=== PATIENT | female | born 1955 | race Caucasian/White ===

== ENCOUNTER 2017-05-12 10:07 | Emergency (ER) | payer MEDICARE ==
[2017-05-12 10:25] VITALS: TEMP 98.3
[2017-05-12] MEDS ORDERED: MORPHINE SULFATE 4 MG/ML SYRINGE IV STA (10:47)
[2017-05-12] MEDS ORDERED: SODIUM CHLORIDE 0.9% 1,000 ML IV STA (10:47)
[2017-05-12] MEDS ORDERED: ONDANSETRON 4 MG/2 ML VIAL IVP STA (10:47)
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
[2017-05-12 11:26] VITALS: BP 125/64; PULSE 81; RESP 16
[2017-05-12 11:38] LABS: Basophils % (A) 0 %; Eosinophils # (A) 0.1 k/uL (0-0.7); Eosinophils % (A) 1 %; HCT 46.6 % (34.0-46.0); HGB 15.5 gm/dL (11.4-16.0); Lymphocytes # (A) 2.8 k/uL (1.0-4.8); Lymphocytes % (A) 30 %; MCH 30.1 pg (25.0-35.0); MCHC 33.2 g/dL (31.0-37.0); MCV 90.8 fL (80.0-100.0); Mean Platelet Volume 6.7; Monocytes # (A) 0.6 k/uL (0-1.0); Monocytes % (A) 6 %; Neutrophils # (A) 5.5 k/uL (1.3-7.7); Neutrophils % (A) 59 %; Platelet Count 281 k/uL (150-450); RBC 5.14 m/uL (3.80-5.40); RDW 12.5 % (11.5-15.5); WBC 9.3 k/uL (3.8-10.6)
[2017-05-12 11:51] LABS: ALT 52 U/L (9-52); AST 35 U/L (14-36); Albumin 4.3 g/dL (3.5-5.0); Alkaline Phosphatase 56 U/L (38-126); Anion Gap 10 mmol/L; Blood Urea Nitrogen 12 mg/dL (7-17); Calcium 10.6 mg/dL (8.4-10.2); Carbon Dioxide 30 mmol/L (22-30); Chloride 104 mmol/L (98-107); Glucose 88 mg/dL (74-99); Potassium 4.4 mmol/L (3.5-5.1); Sodium 144 mmol/L (137-145); Total Bilirubin 0.4 mg/dL (0.2-1.3); Total Protein 8.4 g/dL (6.3-8.2)
--- NOTE | 2017-05-12 12:10 | CT ---
EXAMINATION TYPE: CT brain ozzyine wo con DATE OF EXAM: 05/12/2017 COMPARISON: NONE HISTORY: Head and neck pain. History of neck and lung cancer per patient. CT DLP: 1616 mGycm, Automated exposure control for dose reduction was used. CONTRAST: None CT of the brain is performed utilizing 3 mm thick sections through the posterior fossa and 3 mm thick sections through the remaining calvarium. Study is performed within 24 hours of arrival to the hospital. No abnormal hyperdensity is present to suggest an acute intracranial hemorrhage. No mass lesion is evident. No acute infarcts are evident. Ventricles and sulci are appropriate for the patient age. Paranasal sinuses and mastoid air cells within the [id number] are clear. IMPRESSIONS: 1. Normal CT brain. CT cervical spine. COMPARISON: None CT of the cervical spine is performed in the axial plane at 2 mm thick sections. Reconstructed image s in the coronal, and sagittal plane are reviewed on the computer. No acute fractures are evident. There is a kyphosis centered at C5. Large anterior vertebral body spurs at C5. There is loss of disc height throughout the cervical spine. This is greatest at C5-6 C6-7. Some poste rior endplate spurring is present at C5-6 in the left paracentral canal mild anterior thecal sac comp ression. Mild foraminal narrowing is present C4-5 due to uncovertebral joint hypertrophy. Some mild f oraminal narrowing at C5-6 may be present greater on the left. Vertebral body heights are preserved. No spinal canal stenosis is evident. IMPRESSIONS: 1. Degenerative changes within the cervical spine greatest at C5-6
[2017-05-12 12:54] LABS: Erythrocyte Sedimentation Rate 11 mm/hr (0-20)
[2017-05-12] MEDS ORDERED: MORPHINE SULFATE 4 MG/ML SYRINGE IVP STA (13:04)
== END 2017-05-12 13:40 | disposition home or self-care (01) ==
LOC: EC 10:07
DX: M54.2 Cervicalgia (principal); R51 Headache; G89.29 Other chronic pain; R40.2412 Glasgow coma scale score 13-15, at arrival to emergency department; F17.200 Nicotine dependence, unspecified, uncomplicated; Z79.899 Other long term (current) drug therapy; Z88.1 Allergy status to other antibiotic agents; Z88.2 Allergy status to sulfonamides; Z88.8 Allergy status to other drugs, medicaments and biological substances; Z85.118 Personal history of other malignant neoplasm of bronchus and lung
CPT/HCPCS: 36415; 80053; 85652; 85025; 72125; 70450; 99284; 96374; 96375; 96376; 96361 ×2; J2270; J2405

== ENCOUNTER 2017-06-03 09:34 | Emergency (ER) | payer MEDICARE ==
[2017-06-03 09:38] VITALS: BP 126/60; PULSE 74; RESP 20; TEMP 97.4
--- NOTE | 2017-06-03 09:51 | ED ---
Headache HPI - General Chief Complaint: Headache Stated Complaint: Neck pain Time Seen by Provider: 06/03/17 09:40 Source: RN notes reviewed, old records reviewed Mode of arrival: ambulatory Limitations: no limitations - History of Present Illness Initial Comments: This patient is a 61-year-old female presents with chief complaint of neck pain and headache. Patient reports that she is here from [place] taking care of her brother with cancer. Patient ports that she's had a history of lung cancer and reports that before she left [place] take care of her brother was told that she's had some spreading of the cancer to her neck. Patient reports that she was prescribed pain medication AND she is in the ER and is hoping to find a primary care physician. Patient states that she took one of the Percocets which helped her pain for approximately an hour but she states that it was continually worsened that she felt she needed to come here. Patient states that she's had no nausea or vomiting vision changes or chest pain or shortness of breath. Patient states that she has had a history of chronic headaches or migraines. Patient reports that she has no fever or chills, sinus congestion or pressure or any other symptoms. - Related Data Home Medications Medication Instructions Recorded Confirmed Multivitamins, Thera [Multivitamin 1 tab PO DAILY 05/12/17 05/12/17 (formulary)] Previous Rx's Medication Instructions Recorded oxyCODONE HCL/ACETAMINOPHEN 1 tab PO Q6HR PRN #15 tab 05/12/17 [Percocet 5-325 mg] Cyclobenzaprine [Flexeril] 10 mg PO TID #15 tab 06/03/17 Ibuprofen [Motrin] 600 mg PO Q8HR PRN #15 tab 06/03/17 Allergies Allergy/AdvReac Type Severity Reaction Status Date / Time marijuana Allergy Anaphylaxis Verified 06/03/17 09:38 neomycin Allergy Rash/Hives Verified 06/03/17 09:38 Sulfa (Sulfonamide AdvReac Unknown Verified 06/03/17 09:38 Antibiotics) Review of Systems ROS Statement: Those systems with pertinent positive or pertinent negative responses have been documented in the HPI. ROS Other: All systems not noted in ROS Statement are negative. Past Medical History Past Medical History: Cancer, COPD Additional Past Medical History / Comment(s): Hepatitis C, recent diagnosis of "neck cancer", lung cancer History of Any Multi-Drug Resistant Organisms: C-DIFF Date of last positivie culture/infection: 02/2017 Past Surgical History: Cholecystectomy, Orthopedic Surgery Additional Past Surgical History / Comment(s): Tendon release in right hand Past Psychological History: ADD/ADHD, Anxiety, Bipolar, Depression, PTSD Smoking Status: Current every day smoker Past Alcohol Use History: Occasional Past Drug Use History: IV Drug Use, Methamphetamine, Opiates, Prescription Drug Abuse General Exam - General Exam Comments Initial Comments: This is a well-appearing alert and oriented 61-year-old female. Doesn't appear to be in any acute distress. Limitations: no limitations General appearance: alert, in no apparent distress Head exam: Present: atraumatic Eye exam: Present: PERRL, EOMI, other (Patient has pinpoint pupils consistent with opiate use.). Absent: normal appearance, scleral icterus, conjunctival injection, periorbital swelling ENT exam: Present: normal exam, mucous membranes moist Neck exam: Present: normal inspection, full ROM, other (Patient reports a minimal tenderness to palpation over the cervical paraspinal muscles. No meningeal signs. Full range of motion noted. No rigidity.). Absent: tenderness, meningismus, lymphadenopathy Respiratory exam: Present: normal lung sounds bilaterally. Absent: respiratory distress, wheezes, rales, rhonchi, stridor Cardiovascular Exam: Present: regular rate, normal rhythm, normal heart sounds. Absent: systolic murmur, diastolic murmur, rubs, gallop, clicks GI/Abdominal exam: Present: soft, normal bowel sounds. Absent: distended, tenderness, guarding, rebound, rigid Extremities exam: Present: normal inspection, full ROM, normal capillary refill. Absent: tenderness, pedal edema, joint swelling, calf tenderness Back exam: Present: normal inspection, full ROM Neurological exam: Present: alert, oriented X3, CN II-XII intact Expanded Patient oriented to: Present: person, place, time Speech: Present: fluid speech Cranial nerves: EOM's Intact: Normal Cerebellar function: Finger to Nose: Normal Upper motor neuron: Pronator Drift: Normal Sensory exam: Upper Extremity Light Touch: Normal, Lower Extremity Light Touch: Normal Motor strength exam: RUE: 5, LUE: 5, RLE: 5, LLE: 5 Eye Response: (4) open spontaneously Motor Response: (6) obeys commands Verbal Response: (5) oriented Ankush Total: 15 Psychiatric exam: Present: normal affect, normal mood Skin exam: Present: warm, dry, intact, normal color. Absent: rash Course Vital Signs 06/03/17 09:37 Temperature 97.4 F L Pulse Rate 74 Respiratory 20 Rate Blood Pressure 126/60 O2 Sat by Pulse 98 Oximetry Medical Decision Making - Medical Decision Making This is a 61-year-old female present emergency Department chief complaining of a headache. She reports having this headache chronically for quite some time. She was seen in emergency department for approximately one month ago for similar complaint status full workup CT head and neck and C-spine. She states that she's had a history of cancer which spread to her neck. And upon review of the previous chart and scans patient's CT of the brain and C-spine are normal. No evidence of metastatic disease. She complains of some minor tenderness over the left cervical paraspinous muscles. Patient was offered IV fluids and IV medication for her headache, she has no neurological deficits or any other symptoms at this time. She also requests a prescription for pain medication. Maps report was ran. She did have one prescription filled for oxycodone acetaminophen from her previous ER visit. No other prescriptions were completed at that time. Patient requested only to see IM injections. She does not want an IV. Given IM Norflex and Toradol for headache. At this time I discussed the patient she is follow-up with primary care provider for further treatment and pain medication. We'll discharge her with a temperature medication and advised to follow-up with PCP. Given referrals for PCPs. All questions were answered and return parameters were discussed. Disposition Clinical Impression: Neck pain on left side, Headache Disposition: HOME SELF-CARE Condition: Good Instructions: Acute Headache (ED) Additional Instructions: Patient advised to take the medication as prescribed. Follow-up with primary care provider. Return to the emergency department if any alarming signs symptoms occur. Prescriptions: Cyclobenzaprine [Flexeril] 10 mg PO TID #15 tab Ibuprofen [Motrin] 600 mg PO Q8HR PRN #15 tab PRN Reason: Pain Referrals: None,Stated [Primary Care Provider] - 1-2 days Leticia Majano MD [STAFF PHYSICIAN] - 1-2 days Stew Devine MD [REFERRING] - 1-2 days Time of Disposition: 10:16
[2017-06-03] MEDS ORDERED: KETOROLAC 60 MG/2 ML VIAL IM STA (09:54)
[2017-06-03] MEDS ORDERED: ORPHENADRINE 30 MG/ML 2 ML VIAL IM STA (09:54)
[2017-06-03] MEDS ORDERED: ACET/COD 300 MG/30 MG STARTER PACK 6 TAB BTL PO STA (10:25)
== END 2017-06-03 10:49 | disposition home or self-care (01) ==
LOC: EC 09:34
DX: R51 Headache (principal); M54.2 Cervicalgia; F17.200 Nicotine dependence, unspecified, uncomplicated; Z85.118 Personal history of other malignant neoplasm of bronchus and lung; Z85.89 Personal history of malignant neoplasm of other organs and systems; Z86.19 Personal history of other infectious and parasitic diseases; Z79.899 Other long term (current) drug therapy; Z88.1 Allergy status to other antibiotic agents; Z88.2 Allergy status to sulfonamides; Z91.048 Other nonmedicinal substance allergy status
CPT/HCPCS: 99284; 96372 ×2; J2360; J1885

== ENCOUNTER 2017-07-05 17:24 | Emergency (ER) | payer MEDICARE ==
[2017-07-05 17:30] VITALS: BP 133/74; PULSE 81; RESP 18; TEMP 97.9
[2017-07-05] MEDS ORDERED: METOCLOPRAMIDE 5 MG/ML 2 ML VIAL IVP STA (19:38)
[2017-07-05] MEDS ORDERED: KETOROLAC 30 MG/ML 1 ML VIAL IVP STA (19:38)
[2017-07-05] MEDS ORDERED: SODIUM CHLORIDE 0.9% 1,000 ML IV STA (19:38)
[2017-07-05] MEDS ORDERED: diphenhydrAMINE 50 MG/ML 1 ML VIAL IVP STA (19:38)
[2017-07-05] MEDS ORDERED: diphenhydrAMINE 25 MG CAP PO STA (20:23)
[2017-07-05] MEDS ORDERED: KETOROLAC 30 MG/ML 1 ML VIAL IM STA (20:23)
[2017-07-05] MEDS ORDERED: METOCLOPRAMIDE 5 MG/ML 2 ML VIAL IM STA (20:23)
--- NOTE | 2017-07-05 21:01 | ED ---
Headache HPI - General Chief Complaint: Headache Stated Complaint: headache/ neck pain Time Seen by Provider: 07/05/17 19:31 Source: RN notes reviewed Mode of arrival: ambulatory Limitations: no limitations - History of Present Illness Initial Comments: This is a 61-year-old female who presents to the emergency department with chief complaint of neck pain and headache. Patient states that the headache is pressure-like and constant. She states this has been going on for the last 3-4 months and had had an increase in her pain today. Patient states that she is unable to get the headache to go away on its own. She states that she does have a history of previous headaches and there is no change from the previous. Computed tomography scan was obtained previously revealed no acute abnormalities. Patient denies any recent falls, injuries or trauma. She denies fevers or chills, chest pain or shortness of breath, abdominal pain, nausea or vomiting. She states that she has been taking Tylenol at home. - Related Data Home Medications Medication Instructions Recorded Confirmed No Known Home Medications [No 07/05/17 07/05/17 Known Home Medications] Allergies Allergy/AdvReac Type Severity Reaction Status Date / Time marijuana Allergy Anaphylaxis Verified 07/05/17 19:46 neomycin Allergy Rash/Hives Verified 07/05/17 19:46 Sulfa (Sulfonamide AdvReac Unknown Verified 07/05/17 19:46 Antibiotics) Review of Systems ROS Statement: Those systems with pertinent positive or pertinent negative responses have been documented in the HPI. ROS Other: All systems not noted in ROS Statement are negative. Past Medical History Past Medical History: Cancer, COPD Additional Past Medical History / Comment(s): Hepatitis C, recent diagnosis of "neck cancer", lung cancer History of Any Multi-Drug Resistant Organisms: C-DIFF, MRSA Date of last positivie culture/infection: 02/2017 Past Surgical History: Cholecystectomy, Orthopedic Surgery Additional Past Surgical History / Comment(s): Tendon release in right hand Past Psychological History: ADD/ADHD, Anxiety, Bipolar, Depression, PTSD Smoking Status: Current every day smoker Past Alcohol Use History: Occasional Past Drug Use History: IV Drug Use, Methamphetamine, Opiates, Prescription Drug Abuse General Exam - General Exam Comments Initial Comments: General: Awake and alert, well-developed; in no apparent distress. HEENT: Head atraumatic, normocephalic. Pupils are equal, round and reactive to light. Extraocular movements intact. Oropharynx moist without erythema or exudate. Neck: Supple. Normal ROM. Cardiovascular: Regular rate and rhythm. No murmurs, rubs or gallops. Chest symmetrical. Respiratory: Lungs clear to auscultation bilaterally. No wheezes, rales or rhonchi. Normal respiratory effort with no use of accessory muscles. Musculoskeletal: Normal ROM, no tenderness bilateral upper and lower extremities. Ambulating normally. Skin: [place], warm and dry without rashes or lesions. Neurological: Alert and oriented x3. CN II-XII grossly intact. Speech is fluent and answers are appropriate. No focal neuro deficits. Limitations: no limitations Course Vital Signs 07/05/17 17:27 Temperature 97.9 F Pulse Rate 81 Respiratory 18 Rate Blood Pressure 133/74 O2 Sat by Pulse 98 Oximetry Medical Decision Making - Medical Decision Making 61-year-old female who presents to the emergency department with chief complaint of headache. Nurses unable to obtain intravenous access, so IM medications were ordered. Patient became angry and requested to have Fentanyl. She eloped from the emergency department. Disposition Clinical Impression: Headache Narrative: eloped from ED Disposition: HOME SELF-CARE Condition: Undetermined Referrals: Ruperto Rodriguez MD [Primary Care Provider] - 1-2 days Time of Disposition: 21:01
== END 2017-07-05 20:43 | disposition home or self-care (01) ==
LOC: EC 17:24
DX: R51 Headache (principal); M54.2 Cervicalgia; F17.200 Nicotine dependence, unspecified, uncomplicated; Z86.19 Personal history of other infectious and parasitic diseases; Z85.89 Personal history of malignant neoplasm of other organs and systems; Z86.14 Personal history of Methicillin resistant Staphylococcus aureus infection; Z88.1 Allergy status to other antibiotic agents; Z88.2 Allergy status to sulfonamides; Z91.048 Other nonmedicinal substance allergy status; Z53.8 Procedure and treatment not carried out for other reasons
CPT/HCPCS: 99283; J2765; J1885

== ENCOUNTER 2017-08-15 20:14 | Emergency (ER) | payer MEDICARE ==
[2017-08-15 20:31] VITALS: BP 127/74; PULSE 78; RESP 16; TEMP 99.5
--- NOTE | 2017-08-15 22:28 | ED ---
General Adult HPI - General Chief complaint: Abdominal Pain Stated complaint: Dental Pain Time Seen by Provider: 08/15/17 21:48 Source: patient, EMS, RN notes reviewed, old records reviewed Mode of arrival: EMS Limitations: no limitations - History of Present Illness Initial comments: This is a 61-year-old female the ER for evaluation of multiple nonspecific complaints. Patient does suffer from cancer COPD and hepatitis C. Patient presents today for evaluation of pain. Chronic back pain and dental pain abdominal pain chronic. No modifying factors for symptoms at home. No new injuries no fevers no cough or congestion shortness of breath or chest pain. No nausea vomiting or diarrhea. No sick contacts or travel history. Patient also admits to dental pain. Patient does state that she seeing voices or hearing voices but denies homicidal or suicidal thoughts, no drugs or alcohol abuse - Related Data Home Medications Medication Instructions Recorded Confirmed Hydrocodone/Acetaminophen [Ronan 1 tab PO Q6HR PRN 08/15/17 08/15/17 5-325] Allergies Allergy/AdvReac Type Severity Reaction Status Date / Time marijuana Allergy Anaphylaxis Verified 08/15/17 21:52 neomycin Allergy Rash/Hives Verified 08/15/17 21:52 Sulfa (Sulfonamide AdvReac Unknown Verified 08/15/17 21:52 Antibiotics) Review of Systems ROS Statement: Those systems with pertinent positive or pertinent negative responses have been documented in the HPI. ROS Other: All systems not noted in ROS Statement are negative. Past Medical History Past Medical History: Cancer, COPD Additional Past Medical History / Comment(s): Hepatitis C, recent diagnosis of "neck cancer", lung cancer History of Any Multi-Drug Resistant Organisms: C-DIFF, MRSA Date of last positivie culture/infection: 02/2017 Past Surgical History: Cholecystectomy, Orthopedic Surgery Additional Past Surgical History / Comment(s): Tendon release in right hand Past Psychological History: ADD/ADHD, Anxiety, Bipolar, Depression, PTSD Smoking Status: Current every day smoker Past Alcohol Use History: Occasional Past Drug Use History: IV Drug Use, Methamphetamine, Opiates, Prescription Drug Abuse General Exam Limitations: no limitations General appearance: alert, in no apparent distress Head exam: Present: atraumatic, normocephalic, normal inspection Eye exam: Present: normal appearance, PERRL, EOMI. Absent: scleral icterus, conjunctival injection, periorbital swelling ENT exam: Present: normal exam, mucous membranes moist Neck exam: Present: normal inspection. Absent: tenderness, meningismus, lymphadenopathy Respiratory exam: Present: normal lung sounds bilaterally. Absent: respiratory distress, wheezes, rales, rhonchi, stridor Cardiovascular Exam: Present: regular rate, normal rhythm, normal heart sounds. Absent: systolic murmur, diastolic murmur, rubs, gallop, clicks GI/Abdominal exam: Present: soft, normal bowel sounds. Absent: distended, tenderness, guarding, rebound, rigid Extremities exam: Present: normal inspection, full ROM, normal capillary refill. Absent: tenderness, pedal edema, joint swelling, calf tenderness Back exam: Present: normal inspection Neurological exam: Present: alert, oriented X3, CN II-XII intact Psychiatric exam: Present: normal affect, normal mood Skin exam: Present: warm, dry, intact, normal color. Absent: rash Course Vital Signs 08/15/17 20:24 Temperature 99.5 F Pulse Rate 78 Respiratory 16 Rate Blood Pressure 127/74 O2 Sat by Pulse 97 Oximetry - Reevaluation(s) Reevaluation #1: 08/15/17 22:26 Patient is in no acute distress, medical record is reviewed with ER visits reviewed Medical Decision Making - Medical Decision Making 61 female the ER for evaluation of multiple complaints, everything from seeing voices during pain. She does describe given pain from abdomen to back to mouth and dental pain. Patient also concerned she does suggest but no current diarrhea. Patient unable to give diarrhea sample. Patient be discharged home Disposition Clinical Impression: Abdominal pain, Chronic pain, Chronic dental pain Disposition: HOME SELF-CARE Condition: Good Instructions: Chronic Pain (ED) Is patient prescribed a controlled substance at d/c from ED?: No Referrals: Ruperto Rodriguez MD [Primary Care Provider] - 1-2 days
[2017-08-15] MEDS: KETOROLAC 60 MG/2 ML VIAL IM STA ×2 (23:21→23:24)
== END 2017-08-15 23:30 | disposition home or self-care (01) ==
LOC: EC 20:14
DX: G89.29 Other chronic pain (principal); R10.9 Unspecified abdominal pain; K08.89 Other specified disorders of teeth and supporting structures; F17.200 Nicotine dependence, unspecified, uncomplicated; Z85.118 Personal history of other malignant neoplasm of bronchus and lung; Z86.14 Personal history of Methicillin resistant Staphylococcus aureus infection; Z88.1 Allergy status to other antibiotic agents; Z90.49 Acquired absence of other specified parts of digestive tract; Z88.2 Allergy status to sulfonamides; Z91.048 Other nonmedicinal substance allergy status
CPT/HCPCS: 96372; 99284

== ENCOUNTER 2017-10-21 12:16 | Emergency (ER) | payer MEDICARE ==
[2017-10-21] MEDS ORDERED: ORPHENADRINE 30 MG/ML 2 ML VIAL IM STA (12:41)
[2017-10-21] MEDS ORDERED: KETOROLAC 60 MG/2 ML VIAL IM STA (12:41)
--- NOTE | 2017-10-21 12:45 | ED ---
Back Pain HPI - General Chief Complaint: Back Pain/Injury Stated Complaint: Back pain Time Seen by Provider: 10/21/17 12:20 Source: patient, EMS, RN notes reviewed, old records reviewed Limitations: no limitations - History of Present Illness Initial Comments: This is a 62-year-old female present the emergency Department chief complaint of headache, and acute exacerbation of chronic back pain. Patient reports that [place] a metal bucket. Patient states that she has no peripheral paresthesias on her legs. She denies any change in urinary or stool habits. Denies saddle anesthesias. Patient arrived here via EMS because she was laying on the floor and had a hard time getting up. Patient reports that she was able to walk but could not get from the laying down position to her feet. Patient has been to the emergency department multiple times within the past 6 months for similar episodes of this. She does have history of drug abuse. Patient had no falls or trauma to cause her new back pain. - Related Data Home Medications Medication Instructions Recorded Confirmed Hydrocodone/Acetaminophen [[place] 1 tab PO Q6HR PRN 08/15/17 08/15/17 5-325] Previous Rx's Medication Instructions Recorded Cyclobenzaprine [Flexeril] 10 mg PO TID #15 tab 10/21/17 Ibuprofen 600 mg PO TID #20 tablet 10/21/17 Allergies Allergy/AdvReac Type Severity Reaction Status Date / Time marijuana Allergy Anaphylaxis Verified 10/21/17 12:23 neomycin Allergy Rash/Hives Verified 10/21/17 12:23 tramadol Allergy Unknown Verified 10/21/17 12:24 Sulfa (Sulfonamide AdvReac Unknown Verified 10/21/17 12:23 Antibiotics) Review of Systems ROS Statement: Those systems with pertinent positive or pertinent negative responses have been documented in the HPI. ROS Other: All systems not noted in ROS Statement are negative. Past Medical History Past Medical History: Cancer, COPD Additional Past Medical History / Comment(s): Hepatitis C, recent diagnosis of "neck cancer", lung cancer History of Any Multi-Drug Resistant Organisms: C-DIFF, MRSA Date of last positivie culture/infection: 02/2017 Past Surgical History: Cholecystectomy, Orthopedic Surgery Additional Past Surgical History / Comment(s): Tendon release in right hand Past Psychological History: ADD/ADHD, Anxiety, Bipolar, Depression, PTSD Smoking Status: Current every day smoker Past Alcohol Use History: Occasional Past Drug Use History: IV Drug Use, Methamphetamine, Opiates, Prescription Drug Abuse General Exam - General Exam Comments Initial Comments: This is a 62-year-old female. Alert and oriented. No significant distress. Limitations: no limitations General appearance: alert, in no apparent distress Head exam: Present: atraumatic, normocephalic, normal inspection Eye exam: Present: normal appearance, PERRL, EOMI. Absent: scleral icterus, conjunctival injection, periorbital swelling ENT exam: Present: normal exam, mucous membranes moist Neck exam: Present: normal inspection. Absent: tenderness, meningismus, lymphadenopathy Respiratory exam: Present: normal lung sounds bilaterally. Absent: respiratory distress, wheezes, rales, rhonchi, stridor Cardiovascular Exam: Present: regular rate, normal rhythm, normal heart sounds. Absent: systolic murmur, diastolic murmur, rubs, gallop, clicks GI/Abdominal exam: Present: soft, normal bowel sounds. Absent: distended, tenderness, guarding, rebound, rigid Extremities exam: Present: normal inspection, full ROM, normal capillary refill. Absent: tenderness, pedal edema, joint swelling, calf tenderness Back exam: Present: normal inspection, tenderness (Lumbar vertebral tenderness and paraspinal tenderness.), other (full strength in lower extremities ) Neurological exam: Present: alert, oriented X3, CN II-XII intact Psychiatric exam: Present: normal affect, normal mood Course Vital Signs 10/21/17 10/21/17 12:18 13:51 Temperature 98.3 F 98.2 F Pulse Rate 52 L 72 Respiratory 16 18 Rate Blood Pressure 131/62 128/58 O2 Sat by Pulse 96 98 Oximetry Medical Decision Making - Medical Decision Making 62 year old female well known to ED for chornic pain presents today with lower back pain after picking up rocks on the beach. She is dressed in jeans. She arrives via EMS due to unable to get up off hte floor. She has normal strength in her legs and seen sitting up. She has no major trauma to cause worsening back pain. She was bending over and picking up small rocks on the beach yesterday. At this time discussed that without trauma and recent xrays, no need to repeat today. She was given toradol and norflex and states she feels better. Patient will be discharged with muscle relaxer and ibuprofen. On discharge patient became irrate because she states that she cannot find a ride home and cannot walk home. She is advised to attempt to call people for an hour before ER will provide cab services. Patient was swearing and becoming irrate. Security escorted patient out. - Lab Data Lab Results 10/21/17 Range/Units 13:00 Group A Strep Rapid Negative (Negative) Disposition Clinical Impression: Acute exacerbation of chronic low back pain, Chronic pain Disposition: HOME SELF-CARE Condition: Good Instructions: Chronic Back Pain (ED) Additional Instructions: Patient advised to follow-up promptly with primary care physicians. Use the muscle relaxers temperature medicine as prescribed. Return to the emergency department if any alarming signs or symptoms occur. Prescriptions: Cyclobenzaprine [Flexeril] 10 mg PO TID #15 tab Ibuprofen 600 mg PO TID #20 tablet Is patient prescribed a controlled substance at d/c from ED?: No Referrals: None,Stated [Primary Care Provider] - 1-2 days Leticia Majano MD [STAFF PHYSICIAN] - 1-2 days Time of Disposition: 13:24
[2017-10-21 13:53] VITALS: BP 128/58; PULSE 72; RESP 18; TEMP 98.2
== END 2017-10-21 13:53 | disposition home or self-care (01) ==
LOC: EC 12:16
DX: M54.5 Low back pain (principal); G89.29 Other chronic pain; R51 Headache; F17.200 Nicotine dependence, unspecified, uncomplicated; Z86.14 Personal history of Methicillin resistant Staphylococcus aureus infection; Z85.118 Personal history of other malignant neoplasm of bronchus and lung; Z90.49 Acquired absence of other specified parts of digestive tract; Z98.890 Other specified postprocedural states; Z88.1 Allergy status to other antibiotic agents; Z88.2 Allergy status to sulfonamides; Z88.5 Allergy status to narcotic agent; Z88.8 Allergy status to other drugs, medicaments and biological substances; X50.0XXA Overexertion from strenuous movement or load, initial encounter; Y92.009 Unspecified place in unspecified non-institutional (private) residence as the place of occurrence of the external cause
CPT/HCPCS: 87081; 87430; 99284; 96372 ×2; J2360; J1885